=== PATIENT | female | born 1955 | race Caucasian/White ===

== ENCOUNTER 2017-11-11 11:04 | Emergency (ER) | payer OTHER ==
[2017-11-11 12:35] LABS: ADD MAN DIFF? NO
[2017-11-11 12:42] LABS: BASOPHILS % 0.5 % (0.0-2.0); EOSINOPHILS # 0.1 10^3/ul (0.0-0.5); EOSINOPHILS % 2.1 % (0.0-7.0); HEMATOCRIT 40.2 % (37.0-47.0); HEMOGLOBIN 12.8 g/dl (12.0-16.0); LYMPHOCYTES # 1.8 10^3/ul (0.8-2.9); LYMPHOCYTES % 30.1 % (15.0-51.0); MEAN CORPUSCULAR HEMOGLOBIN 29.4 pg (29.0-33.0); MEAN CORPUSCULAR HGB CONC 31.8 g/dl (32.0-37.0); MEAN CORPUSCULAR VOLUME 92.4 fl (82.0-101.0); MEAN PLATELET VOLUME 9.7 fl (7.4-10.4); MONOCYTE # 0.4 10^3/ul (0.3-0.9); MONOCYTES % 6.7 % (0.0-11.0); NEUTROPHIL # 3.7 10^3/ul (1.6-7.5); NEUTROPHILS % 60.3 % (39.0-77.0); PLATELET COUNT 205 10^3/UL (140-415); RED BLOOD COUNT 4.35 10^6/ul (4.20-5.40); RED CELL DISTRIBUTION WIDTH 14.4 % (11.5-14.5)
[2017-11-11 12:42] LABS: WHITE BLOOD COUNT 6.1 10^3/ul (4.8-10.8)
[2017-11-11 12:57] LABS: ADD UMIC YES; UR ASCORBIC ACID NEGATIVE (NEGATIVE); UR BILIRUBIN (Dip) NEGATIVE (NEGATIVE); UR BLOOD (Dip) NEGATIVE (NEGATIVE); UR CLARITY CLEAR (CLEAR); UR COLOR YELLOW (YELLOW); UR GLUCOSE (Dip) NEGATIVE (NEGATIVE); UR KETONES (Dip) NEGATIVE (NEGATIVE); UR LEUKOCYTE ESTERASE (Dip) TRACE Leu/ul (NEGATIVE); UR NITRITE (Dip) NEGATIVE (NEGATIVE); UR RBC 1 /HPF (0-5); UR SPECIFIC GRAVITY (Dip) 1.018 (1.003-1.030); UR SQUAMOUS EPITHELIAL CELL FEW /HPF (FEW); UR TOTAL PROTEIN (Dip) NEGATIVE (NEGATIVE); UR UROBILINOGEN (Dip) NEGATIVE (NEGATIVE); UR WBC 2 /HPF (0-5)
[2017-11-11 12:58] LABS: ALANINE AMINOTRANSFERASE 22 IU/L (13-69); ALBUMIN 3.9 g/dl (3.3-4.9); ALBUMIN/GLOBULIN RATIO 1.05; ALKALINE PHOSPHATASE 92 IU/L (42-121); ANION GAP 11 (8-16); ASPARTATE AMINO TRANSFERASE 21 IU/L (15-46); BILIRUBIN,INDIRECT 0.4 mg/dl (0-1.1); BILIRUBIN,TOTAL 0.4 mg/dl (0.2-1.3); BLOOD UREA NITROGEN 14 mg/dl (7-20); CALCIUM 9.5 mg/dl (8.4-10.2); CARBON DIOXIDE 31 mmol/L (21-31); CHLORIDE 103 mmol/L (97-110); CREATININE 0.59 mg/dl (0.44-1.00); GLUCOSE 145 mg/dl (70-220); LIPASE 57 U/L (23-300); POTASSIUM 3.9 mmol/L (3.5-5.1); SODIUM 141 mmol/L (135-144); TOTAL PROTEIN 7.6 g/dl (6.1-8.1)
[2017-11-11] MEDS: ONDANSETRON 4 MG INJ IV (12:59)
[2017-11-11] MEDS: morphine 4 MG/ML VIAL IV (12:59)
[2017-11-11 13:03] LABS: INR 1.16; PT RATIO 1.2
[2017-11-11 13:04] LABS: PARTIAL THROMBOPLASTIN TIME 33.5 Sec (25.0-35.0)
[2017-11-11] MEDS: SOD CHLORIDE 0.9% 1,000 ML IV (13:04)
[2017-11-11] MEDS: KETOROLAC 15 MG INJ IV (13:04)
[2017-11-11 13:50] LABS: CANCER ANTIGEN 125 15.9 U/ml (0.0-35.0)
[2017-11-11] MEDS: SOD CHLORIDE 0.9% 100 ML (14:06)
[2017-11-11] MEDS: IOHEXOL 300MG/ML 150 ML BTL (14:06)
== END 2017-11-11 14:46 | disposition home or self-care (01) ==
LOC: E/R 11:04
DX: R10.84 Generalized abdominal pain (principal); I10 Essential (primary) hypertension; E11.9 Type 2 diabetes mellitus without complications; Z85.43 Personal history of malignant neoplasm of ovary; Z79.84 Long term (current) use of oral hypoglycemic drugs
CPT/HCPCS: 36415; 74177; 80053; 81001; 83690; 85025; 85610; 85730; 86304; 96374; 99285-25

== ENCOUNTER 2017-12-19 12:14 | Inpatient (IN) | payer OTHER ==
[2017-12-19] MEDS: morphine 2 MG INJ IV (13:10)
[2017-12-19 13:13] LABS: ADD MAN DIFF? NO
[2017-12-19 13:20] LABS: BASOPHILS % 0.2 % (0.0-2.0); EOSINOPHILS % 0.3 % (0.0-7.0); HEMATOCRIT 42.1 % (37.0-47.0); HEMOGLOBIN 13.5 g/dl (12.0-16.0); LYMPHOCYTES # 0.9 10^3/ul (0.8-2.9); LYMPHOCYTES % 8.6 % (15.0-51.0); MEAN CORPUSCULAR HEMOGLOBIN 29.5 pg (29.0-33.0); MEAN CORPUSCULAR HGB CONC 32.1 g/dl (32.0-37.0); MEAN CORPUSCULAR VOLUME 91.9 fl (82.0-101.0); MONOCYTE # 0.6 10^3/ul (0.3-0.9); MONOCYTES % 5.5 % (0.0-11.0); NEUTROPHIL # 8.5 10^3/ul (1.6-7.5); PLATELET COUNT 300 10^3/UL (140-415); RED BLOOD COUNT 4.58 10^6/ul (4.20-5.40); RED CELL DISTRIBUTION WIDTH 13.9 % (11.5-14.5)
[2017-12-19 13:37] LABS: ALANINE AMINOTRANSFERASE 22 IU/L (13-69); ALBUMIN 3.9 g/dl (3.3-4.9); ALKALINE PHOSPHATASE 94 IU/L (42-121); ANION GAP 16 (8-16); ASPARTATE AMINO TRANSFERASE 20 IU/L (15-46); BILIRUBIN,INDIRECT 0.6 mg/dl (0-1.1); BILIRUBIN,TOTAL 0.6 mg/dl (0.2-1.3); BLOOD UREA NITROGEN 13 mg/dl (7-20); CALCIUM 9.5 mg/dl (8.4-10.2); CARBON DIOXIDE 29 mmol/L (21-31); CHLORIDE 99 mmol/L (97-110); CREATININE 0.52 mg/dl (0.44-1.00); GLUCOSE 181 mg/dl (70-220); LIPASE 28 U/L (23-300); POTASSIUM 4.2 mmol/L (3.5-5.1); SODIUM 140 mmol/L (135-144); TOTAL PROTEIN 7.8 g/dl (6.1-8.1)
[2017-12-19 13:38] LABS: ADD UMIC YES; UR ASCORBIC ACID NEGATIVE (NEGATIVE); UR BACTERIA FEW /HPF (NONE SEEN); UR BILIRUBIN (Dip) NEGATIVE (NEGATIVE); UR BLOOD (Dip) NEGATIVE (NEGATIVE); UR CLARITY CLEAR (CLEAR); UR COLOR YELLOW (YELLOW); UR GLUCOSE (Dip) NEGATIVE (NEGATIVE); UR KETONES (Dip) 1+ mg/dL (NEGATIVE); UR LEUKOCYTE ESTERASE (Dip) NEGATIVE Leu/ul (NEGATIVE); UR MUCUS FEW /HPF (NONE SEEN); UR NITRITE (Dip) NEGATIVE (NEGATIVE); UR RBC 1 /HPF (0-5); UR SPECIFIC GRAVITY (Dip) 1.025 (1.003-1.030); UR SQUAMOUS EPITHELIAL CELL FEW /HPF (FEW); UR TOTAL PROTEIN (Dip) 1+ mg/dl (NEGATIVE); UR UROBILINOGEN (Dip) NEGATIVE (NEGATIVE); UR WBC 2 /HPF (0-5)
[2017-12-19] MEDS: SOD CHLORIDE 0.9% 100 ML (15:01)
[2017-12-19] MEDS: IODIXANOL LOCM 100 ML BTL (15:01)
[2017-12-19] MEDS: SOD CHLORIDE 0.9% 1,000 ML IV (15:56)
[2017-12-19] MEDS ORDERED: NACL 0.9% 3 ML SYG IV (17:30)
[2017-12-19] MEDS ORDERED: GLUCAGON 1 MG INJ IM (18:00)
[2017-12-19] MEDS ORDERED: GLUCOSE GEL 15 GRAM TUBE BUCCAL (18:00)
[2017-12-19] MEDS ORDERED: GLUCOSE GEL 15 GRAM TUBE PO ×2 (18:00)
[2017-12-19] MEDS: INSULIN ASPART [NOVOLOG] 3 ML PEN SC ×2 (18:00→20:54)
[2017-12-19] MEDS ORDERED: DEXTROSE 50% 50 ML SYRINGE IV ×2 (18:00)
[2017-12-19 18:08] LABS: INR 1.12; PROTIME 14.6 Sec (11.9-14.9); PT RATIO 1.1
[2017-12-19] MEDS: DEXTROSE 5%-0.45% NACL 1,000 ML IV (18:32)
[2017-12-19] MEDS: ONDANSETRON 4 MG INJ IV (18:46)
[2017-12-19] MEDS: PIPER-TAZO 3.375 GM IV (PMX) 100 ML IVPB ×2 (18:47→21:40)
[2017-12-20] MEDS ORDERED: INSULIN ASPART [NOVOLOG] 3 ML PEN SC (01:00)
[2017-12-20] MEDS: Insulin NOVOLOG SS MILD Algorithm (NPO/TPN/ENTERAL FEEDS) SC ×6 (01:56→20:53)
[2017-12-20] MEDS ORDERED: ACCU-CHEK XX (02:00)
[2017-12-20 05:17] LABS: ADD MAN DIFF? NO
[2017-12-20 05:21] LABS: BASOPHILS % 0.5 % (0.0-2.0); EOSINOPHILS # 0.2 10^3/ul (0.0-0.5); EOSINOPHILS % 3.1 % (0.0-7.0); HEMATOCRIT 35.9 % (37.0-47.0); HEMOGLOBIN 11.4 g/dl (12.0-16.0); LYMPHOCYTES # 1.3 10^3/ul (0.8-2.9); MEAN CORPUSCULAR HEMOGLOBIN 29.7 pg (29.0-33.0); MEAN CORPUSCULAR HGB CONC 31.8 g/dl (32.0-37.0); MEAN CORPUSCULAR VOLUME 93.5 fl (82.0-101.0); MEAN PLATELET VOLUME 10.2 fl (7.4-10.4); MONOCYTE # 0.5 10^3/ul (0.3-0.9); MONOCYTES % 8.8 % (0.0-11.0); NEUTROPHIL # 3.9 10^3/ul (1.6-7.5); NEUTROPHILS % 65.1 % (39.0-77.0); PLATELET COUNT 267 10^3/UL (140-415); RED BLOOD COUNT 3.84 10^6/ul (4.20-5.40); RED CELL DISTRIBUTION WIDTH 14.2 % (11.5-14.5)
[2017-12-20 05:21] LABS: WHITE BLOOD COUNT 6.1 10^3/ul (4.8-10.8)
[2017-12-20 05:33] LABS: HEMOGLOBIN A1C 7.4 % (0-5.9)
[2017-12-20] MEDS: PANTOPRAZOLE 40 MG INJ IV ×2 (05:51→17:15)
[2017-12-20] MEDS: PIPER-TAZO 3.375 GM IV (PMX) 100 ML IVPB ×3 (05:53→22:31)
[2017-12-20 06:00] LABS: ANION GAP 10 (8-16); BLOOD UREA NITROGEN 12 mg/dl (7-20); CALCIUM 8.6 mg/dl (8.4-10.2); CARBON DIOXIDE 33 mmol/L (21-31); CHLORIDE 101 mmol/L (97-110); CREATININE 0.61 mg/dl (0.44-1.00); GLUCOSE 148 mg/dl (70-220); PHOSPHORUS 4.3 mg/dl (2.5-4.9); POTASSIUM 3.9 mmol/L (3.5-5.1); SODIUM 140 mmol/L (135-144)
[2017-12-20] MEDS: DEXTROSE 5%-0.45% NACL 1,000 ML IV ×2 (08:53→22:29)
[2017-12-20] MEDS: morphine 2 MG INJ IV ×2 (11:00→20:49)
[2017-12-21] MEDS: Insulin NOVOLOG SS MILD Algorithm (NPO/TPN/ENTERAL FEEDS) SC ×6 (01:00→21:00)
[2017-12-21] MEDS: PANTOPRAZOLE 40 MG INJ IV ×2 (06:03→19:06)
[2017-12-21] MEDS: PIPER-TAZO 3.375 GM IV (PMX) 100 ML IVPB ×3 (06:03→21:16)
[2017-12-21] MEDS: ACETAMINOPHEN 325 MG TAB PO (09:50)
[2017-12-21 12:30] LABS: HEMATOCRIT 34.5 % (37.0-47.0)
[2017-12-21] MEDS: DEXTROSE 5%-0.45% NACL 1,000 ML IV (13:18)
[2017-12-22] MEDS: Insulin NOVOLOG SS MILD Algorithm (NPO/TPN/ENTERAL FEEDS) SC ×5 (01:00→17:00)
[2017-12-22] MEDS: DEXTROSE 5%-0.45% NACL 1,000 ML IV ×2 (02:33→17:27)
[2017-12-22 06:05] LABS: ADD MAN DIFF? NO
[2017-12-22 06:06] LABS: WHITE BLOOD COUNT 6.3 10^3/ul (4.8-10.8)
[2017-12-22 06:06] LABS: BASOPHILS % 0.5 % (0.0-2.0); EOSINOPHILS # 0.2 10^3/ul (0.0-0.5); EOSINOPHILS % 2.4 % (0.0-7.0); HEMATOCRIT 35.5 % (37.0-47.0); HEMOGLOBIN 11.4 g/dl (12.0-16.0); LYMPHOCYTES # 1.1 10^3/ul (0.8-2.9); LYMPHOCYTES % 17.6 % (15.0-51.0); MEAN CORPUSCULAR HEMOGLOBIN 29.8 pg (29.0-33.0); MEAN CORPUSCULAR HGB CONC 32.1 g/dl (32.0-37.0); MEAN CORPUSCULAR VOLUME 92.7 fl (82.0-101.0); MEAN PLATELET VOLUME 10.1 fl (7.4-10.4); MONOCYTE # 0.5 10^3/ul (0.3-0.9); MONOCYTES % 7.9 % (0.0-11.0); NEUTROPHIL # 4.5 10^3/ul (1.6-7.5); NEUTROPHILS % 71.3 % (39.0-77.0); PLATELET COUNT 244 10^3/UL (140-415); RED BLOOD COUNT 3.83 10^6/ul (4.20-5.40); RED CELL DISTRIBUTION WIDTH 13.6 % (11.5-14.5)
[2017-12-22] MEDS: PANTOPRAZOLE 40 MG INJ IV ×2 (06:07→17:21)
[2017-12-22] MEDS: PIPER-TAZO 3.375 GM IV (PMX) 100 ML IVPB ×3 (06:07→21:10)
[2017-12-22 06:35] LABS: ANION GAP 12 (8-16); BLOOD UREA NITROGEN 7 mg/dl (7-20); CALCIUM 8.7 mg/dl (8.4-10.2); CARBON DIOXIDE 29 mmol/L (21-31); CHLORIDE 104 mmol/L (97-110); CREATININE 0.58 mg/dl (0.44-1.00); GLUCOSE 145 mg/dl (70-220); POTASSIUM 3.8 mmol/L (3.5-5.1); SODIUM 141 mmol/L (135-144)
[2017-12-22 06:39] LABS: PHOSPHORUS 4.3 mg/dl (2.5-4.9)
[2017-12-22] MEDS ORDERED: GLUCAGON 1 MG INJ IM (22:00)
[2017-12-22] MEDS ORDERED: DEXTROSE 50% 50 ML SYRINGE IV ×2 (22:00)
[2017-12-22] MEDS ORDERED: GLUCOSE GEL 15 GRAM TUBE PO ×2 (22:00)
[2017-12-22] MEDS ORDERED: GLUCOSE GEL 15 GRAM TUBE BUCCAL (22:00)
[2017-12-23] MEDS: ACCU-CHEK XX (01:05)
[2017-12-23 05:26] LABS: ADD MAN DIFF? NO
[2017-12-23] MEDS: PANTOPRAZOLE 40 MG INJ IV ×2 (05:28→17:36)
[2017-12-23] MEDS: PIPER-TAZO 3.375 GM IV (PMX) 100 ML IVPB ×3 (05:28→21:08)
[2017-12-23 05:37] LABS: BASOPHILS % 0.5 % (0.0-2.0); EOSINOPHILS # 0.1 10^3/ul (0.0-0.5); EOSINOPHILS % 2.1 % (0.0-7.0); HEMATOCRIT 37.3 % (37.0-47.0); HEMOGLOBIN 12.1 g/dl (12.0-16.0); LYMPHOCYTES # 0.9 10^3/ul (0.8-2.9); LYMPHOCYTES % 15.5 % (15.0-51.0); MEAN CORPUSCULAR HGB CONC 32.4 g/dl (32.0-37.0); MEAN CORPUSCULAR VOLUME 92.6 fl (82.0-101.0); MEAN PLATELET VOLUME 10.3 fl (7.4-10.4); MONOCYTE # 0.4 10^3/ul (0.3-0.9); MONOCYTES % 6.6 % (0.0-11.0); NEUTROPHIL # 4.5 10^3/ul (1.6-7.5); PLATELET COUNT 243 10^3/UL (140-415); RED BLOOD COUNT 4.03 10^6/ul (4.20-5.40); RED CELL DISTRIBUTION WIDTH 13.5 % (11.5-14.5)
[2017-12-23 05:37] LABS: WHITE BLOOD COUNT 6.1 10^3/ul (4.8-10.8)
[2017-12-23 05:52] LABS: ANION GAP 9 (8-16); BLOOD UREA NITROGEN 8 mg/dl (7-20); CALCIUM 8.9 mg/dl (8.4-10.2); CARBON DIOXIDE 28 mmol/L (21-31); CHLORIDE 106 mmol/L (97-110); GLUCOSE 137 mg/dl (70-220); POTASSIUM 3.9 mmol/L (3.5-5.1); SODIUM 139 mmol/L (135-144)
[2017-12-23] MEDS: INSULIN ASPART [NOVOLOG] 3 ML PEN SC ×4 (07:50→21:00)
[2017-12-23] MEDS: BISACODYL 10 MG SUPP PR (12:34)
[2017-12-23] MEDS: NA PHOSPHATE/BIPHOS 133 ML ENEMA PR (13:48)
[2017-12-23] MEDS: DEXTROSE 5%-0.45% NACL 1,000 ML IV (16:16)
[2017-12-24] MEDS: ACCU-CHEK XX (02:00)
[2017-12-24 04:57] LABS: ADD MAN DIFF? NO
[2017-12-24 05:05] LABS: WHITE BLOOD COUNT 6.2 10^3/ul (4.8-10.8)
[2017-12-24 05:05] LABS: BASOPHILS % 0.5 % (0.0-2.0); EOSINOPHILS # 0.2 10^3/ul (0.0-0.5); EOSINOPHILS % 2.6 % (0.0-7.0); HEMATOCRIT 35.2 % (37.0-47.0); HEMOGLOBIN 11.4 g/dl (12.0-16.0); LYMPHOCYTES # 1.1 10^3/ul (0.8-2.9); MEAN CORPUSCULAR HEMOGLOBIN 29.8 pg (29.0-33.0); MEAN CORPUSCULAR HGB CONC 32.4 g/dl (32.0-37.0); MEAN CORPUSCULAR VOLUME 91.9 fl (82.0-101.0); MEAN PLATELET VOLUME 9.8 fl (7.4-10.4); MONOCYTE # 0.6 10^3/ul (0.3-0.9); MONOCYTES % 9.4 % (0.0-11.0); NEUTROPHIL # 4.3 10^3/ul (1.6-7.5); PLATELET COUNT 236 10^3/UL (140-415); RED BLOOD COUNT 3.83 10^6/ul (4.20-5.40); RED CELL DISTRIBUTION WIDTH 13.9 % (11.5-14.5)
[2017-12-24 05:33] LABS: ANION GAP 10 (8-16); BLOOD UREA NITROGEN 10 mg/dl (7-20); CALCIUM 8.6 mg/dl (8.4-10.2); CARBON DIOXIDE 30 mmol/L (21-31); CHLORIDE 105 mmol/L (97-110); CREATININE 0.68 mg/dl (0.44-1.00); GLUCOSE 144 mg/dl (70-220); POTASSIUM 3.8 mmol/L (3.5-5.1); SODIUM 141 mmol/L (135-144)
[2017-12-24] MEDS: PIPER-TAZO 3.375 GM IV (PMX) 100 ML IVPB ×3 (05:40→21:23)
[2017-12-24] MEDS: PANTOPRAZOLE 40 MG INJ IV (05:40)
[2017-12-24] MEDS: INSULIN ASPART [NOVOLOG] 3 ML PEN SC ×4 (07:50→21:00)
[2017-12-24] MEDS: DIATR MEGLU/DIATRIZOATE SODIUM 120 ML BTL (15:39)
[2017-12-24] MEDS: PANTOPRAZOLE (EC) 40 MG TAB PO (18:22)
[2017-12-25] MEDS: ACCU-CHEK XX (02:00)
[2017-12-25] MEDS: PIPER-TAZO 3.375 GM IV (PMX) 100 ML IVPB ×2 (05:21→14:02)
[2017-12-25] MEDS: PANTOPRAZOLE (EC) 40 MG TAB PO (05:21)
[2017-12-25] MEDS: INSULIN ASPART [NOVOLOG] 3 ML PEN SC ×2 (07:50→12:58)
== END 2017-12-25 15:50 | disposition home or self-care (01) | DRG 394 ==
LOC: E/R 12:14 → MS1 14:29
DX: K43.6 Other and unspecified ventral hernia with obstruction, without gangrene (principal); K56.690 Other partial intestinal obstruction; C56.9 Malignant neoplasm of unspecified ovary; C77.2 Secondary and unspecified malignant neoplasm of intra-abdominal lymph nodes; K92.1 Melena; D17.79 Benign lipomatous neoplasm of other sites; E11.9 Type 2 diabetes mellitus without complications; I10 Essential (primary) hypertension; E78.5 Hyperlipidemia, unspecified; D63.0 Anemia in neoplastic disease; E66.9 Obesity, unspecified; Z68.37 Body mass index [BMI] 37.0-37.9, adult; Z79.4 Long term (current) use of insulin; Z90.79 Acquired absence of other genital organ(s); Z90.722 Acquired absence of ovaries, bilateral; Z90.710 Acquired absence of both cervix and uterus; Z90.6 Acquired absence of other parts of urinary tract; Z79.82 Long term (current) use of aspirin
CPT/HCPCS: 36415; 71045; 74018; 74019; 74177; 74250; 80048; 80053; 81001; 82962; 83036; 83690; 83735; 84100; 85014; 85018; 85025; 85610; 86304; 93005; 96374; 99285-25

== ENCOUNTER 2018-05-22 11:43 | Inpatient (IN) | payer OTHER ==
[2018-05-22] MEDS: ONDANSETRON 4 MG INJ IV (12:32)
[2018-05-22] MEDS: HYDROmorphONE 1 MG/ML SYG IV (12:32)
[2018-05-22] MEDS: ACETAMINOPHEN 325 MG TAB PO (12:32)
[2018-05-22] MEDS: SODIUM CHLORIDE 0.9% 1L BAG IV* (12:32)
[2018-05-22] MEDS: CEFEPIME 2GM/50 ML (PMX) 50 ML IVPB (12:32)
[2018-05-22 12:34] LABS: ADD MAN DIFF? NO
[2018-05-22 12:44] LABS: WHITE BLOOD COUNT 7.8 10^3/ul (4.8-10.8)
[2018-05-22 12:44] LABS: BASOPHILS % 0.3 % (0.0-2.0); EOSINOPHILS % 0.1 % (0.0-7.0); HEMOGLOBIN 9.9 g/dl (12.0-16.0); LYMPHOCYTES % 13.2 % (15.0-51.0); MEAN CORPUSCULAR HEMOGLOBIN 28.7 pg (29.0-33.0); MEAN CORPUSCULAR HGB CONC 31.9 g/dl (32.0-37.0); MEAN CORPUSCULAR VOLUME 89.9 fl (82.0-101.0); MEAN PLATELET VOLUME 9.9 fl (7.4-10.4); MONOCYTE # 0.9 10^3/ul (0.3-0.9); MONOCYTES % 11.8 % (0.0-11.0); NEUTROPHIL # 5.8 10^3/ul (1.6-7.5); PLATELET COUNT 305 10^3/UL (140-415); RED BLOOD COUNT 3.45 10^6/ul (4.20-5.40); RED CELL DISTRIBUTION WIDTH 17.7 % (11.5-14.5)
[2018-05-22 13:01] LABS: ALANINE AMINOTRANSFERASE 14 IU/L (13-69); ALBUMIN 3.4 g/dl (3.3-4.9); ALBUMIN/GLOBULIN RATIO 0.75; ALKALINE PHOSPHATASE 76 IU/L (42-121); ANION GAP 5 (5-13); ASPARTATE AMINO TRANSFERASE 25 IU/L (15-46); BILIRUBIN,INDIRECT 0.4 mg/dl (0-1.1); BILIRUBIN,TOTAL 0.4 mg/dl (0.2-1.3); BLOOD UREA NITROGEN 7 mg/dl (7-20); CARBON DIOXIDE 32 mmol/L (21-31); CHLORIDE 99 mmol/L (97-110); CREATININE 0.65 mg/dl (0.44-1.00); Estimated GFR > 60 mL/min (>60); GLUCOSE 126 mg/dl (70-220); POTASSIUM 3.8 mmol/L (3.5-5.1); SODIUM 136 mmol/L (135-144); TOTAL PROTEIN 7.9 g/dl (6.1-8.1)
[2018-05-22 13:02] LABS: INR 1.45; PROTIME 17.7 Sec (11.9-14.9); PT RATIO 1.4
[2018-05-22 13:03] LABS: PARTIAL THROMBOPLASTIN TIME 37.7 Sec (23.0-35.0)
[2018-05-22 13:12] LABS: TROPONIN-I < 0.012 ng/ml (0.000-0.120)
[2018-05-22] MEDS ORDERED: ACETAMINOPHEN 325 MG TAB PO ×2 (13:30→17:00)
[2018-05-22] MEDS ORDERED: ONDANSETRON 4 MG INJ IV ×2 (13:30→17:00)
[2018-05-22] MEDS ORDERED: MAGNESIUM HYDROXIDE 30ML CUP PO (17:00)
[2018-05-22] MEDS ORDERED: morphine 2 MG INJ IV (17:00)
[2018-05-22] MEDS ORDERED: NACL 0.9% 3 ML SYG IV (17:00)
[2018-05-22 17:52] LABS: LACTIC ACID 1.1 mmol/L (0.5-2.0); LIPASE 11 U/L (23-300)
[2018-05-22 19:44] LABS: ADD UMIC YES; UR ASCORBIC ACID NEGATIVE (NEGATIVE); UR BILIRUBIN (Dip) NEGATIVE (NEGATIVE); UR BLOOD (Dip) 1+ mg/dL (NEGATIVE); UR CLARITY CLEAR (CLEAR); UR COLOR YELLOW (YELLOW); UR GLUCOSE (Dip) NEGATIVE (NEGATIVE); UR KETONES (Dip) NEGATIVE (NEGATIVE); UR LEUKOCYTE ESTERASE (Dip) NEGATIVE Leu/ul (NEGATIVE); UR NITRITE (Dip) NEGATIVE (NEGATIVE); UR RBC 2 /HPF (0-5); UR TOTAL PROTEIN (Dip) NEGATIVE (NEGATIVE); UR UROBILINOGEN (Dip) NEGATIVE (NEGATIVE); UR WBC 1 /HPF (0-5)
[2018-05-22] MEDS: CEFEPIME 1GM/50 ML (PMX) 50 ML IVPB (22:22)
[2018-05-22] MEDS: SOD CHLORIDE 0.9% 1,000 ML IV (22:22)
[2018-05-23] MEDS ORDERED: PANTOPRAZOLE 40 MG INJ (04:16)
[2018-05-23] MEDS: PANTOPRAZOLE 40 MG INJ IV (05:08)
[2018-05-23 06:53] LABS: ALANINE AMINOTRANSFERASE 16 IU/L (13-69); ALBUMIN 3.1 g/dl (3.3-4.9); ALBUMIN/GLOBULIN RATIO 0.75; ALKALINE PHOSPHATASE 72 IU/L (42-121); ANION GAP 9 (5-13); ASPARTATE AMINO TRANSFERASE 23 IU/L (15-46); BILIRUBIN,INDIRECT 0.2 mg/dl (0-1.1); BILIRUBIN,TOTAL 0.2 mg/dl (0.2-1.3); BLOOD UREA NITROGEN 5 mg/dl (7-20); CALCIUM 8.6 mg/dl (8.4-10.2); CARBON DIOXIDE 27 mmol/L (21-31); CHLORIDE 103 mmol/L (97-110); CREATININE 0.53 mg/dl (0.44-1.00); Estimated GFR > 60 mL/min (>60); GLUCOSE 95 mg/dl (70-220); MAGNESIUM 1.7 mg/dl (1.7-2.5); PHOSPHORUS 3.7 mg/dl (2.5-4.9); POTASSIUM 3.6 mmol/L (3.5-5.1); SODIUM 139 mmol/L (135-144); TOTAL PROTEIN 7.2 g/dl (6.1-8.1)
[2018-05-23] MEDS: CEFEPIME 1GM/50 ML (PMX) 50 ML IVPB ×2 (08:05→20:34)
[2018-05-23] MEDS: HYDROCODONE/APAP (5/325) TAB PO (08:05)
[2018-05-23] MEDS ORDERED: morphine LIQ (10 MG/5 ML) CUP PO (23:00)
[2018-05-24 05:12] LABS: ADD MAN DIFF? NO
[2018-05-24 05:18] LABS: BASOPHILS % 0.4 % (0.0-2.0); EOSINOPHILS % 0.5 % (0.0-7.0); HEMATOCRIT 28.3 % (37.0-47.0); HEMOGLOBIN 8.8 g/dl (12.0-16.0); LYMPHOCYTES # 0.9 10^3/ul (0.8-2.9); LYMPHOCYTES % 15.8 % (15.0-51.0); MEAN CORPUSCULAR HEMOGLOBIN 28.3 pg (29.0-33.0); MEAN CORPUSCULAR HGB CONC 31.1 g/dl (32.0-37.0); MEAN PLATELET VOLUME 9.5 fl (7.4-10.4); MONOCYTE # 0.6 10^3/ul (0.3-0.9); NEUTROPHIL # 4.1 10^3/ul (1.6-7.5); NEUTROPHILS % 72.6 % (39.0-77.0); PLATELET COUNT 272 10^3/UL (140-415); RED BLOOD COUNT 3.11 10^6/ul (4.20-5.40); RED CELL DISTRIBUTION WIDTH 17.8 % (11.5-14.5)
[2018-05-24 05:18] LABS: WHITE BLOOD COUNT 5.7 10^3/ul (4.8-10.8)
[2018-05-24] MEDS: PANTOPRAZOLE 40 MG INJ IV (07:27)
[2018-05-24] MEDS ORDERED: GLUCOSE GEL 15 GRAM TUBE PO ×2 (08:30)
[2018-05-24] MEDS ORDERED: GLUCOSE GEL 15 GRAM TUBE BUCCAL (08:30)
[2018-05-24] MEDS ORDERED: GLUCAGON 1 MG INJ IM (08:30)
[2018-05-24] MEDS ORDERED: DEXTROSE 50% 50 ML SYRINGE IV ×2 (08:30)
[2018-05-24] MEDS: INSULIN ASPART [NOVOLOG] 3 ML PEN SC (09:30)
[2018-05-24] MEDS: CEFEPIME 1GM/50 ML (PMX) 50 ML IVPB (09:58)
== END 2018-05-24 12:40 | disposition home or self-care (01) | DRG 864 ==
LOC: MS1 14:28 → E/R 11:43 → MS1 05-23 11:11 → PP2 13:16 → MS1 14:28
PROVIDERS: Internal Medicine
DX: R50.9 Fever, unspecified (principal); C56.9 Malignant neoplasm of unspecified ovary; C78.6 Secondary malignant neoplasm of retroperitoneum and peritoneum; C77.2 Secondary and unspecified malignant neoplasm of intra-abdominal lymph nodes; C78.7 Secondary malignant neoplasm of liver and intrahepatic bile duct; N39.0 Urinary tract infection, site not specified; R18.8 Other ascites; E11.9 Type 2 diabetes mellitus without complications; I10 Essential (primary) hypertension; R11.2 Nausea with vomiting, unspecified
CPT/HCPCS: 36415; 71045; 74176; 80053; 81001; 82962; 83605; 83690; 83735; 84100; 84484; 85025; 85610; 85730; 87040; 87086; 87400; 93005; 96365; 96375; 99285-25; G0378

== ENCOUNTER 2018-05-29 10:05 | Emergency (ER) | payer OTHER ==
[2018-05-29 12:05] LABS: ADD MAN DIFF? NO
[2018-05-29 12:24] LABS: BASOPHILS % 0.3 % (0.0-2.0); EOSINOPHILS % 0.1 % (0.0-7.0); HEMATOCRIT 31.4 % (37.0-47.0); HEMOGLOBIN 9.7 g/dl (12.0-16.0); LYMPHOCYTES % 13.5 % (15.0-51.0); MEAN CORPUSCULAR HGB CONC 30.9 g/dl (32.0-37.0); MEAN CORPUSCULAR VOLUME 90.8 fl (82.0-101.0); MEAN PLATELET VOLUME 10.1 fl (7.4-10.4); MONOCYTE # 0.8 10^3/ul (0.3-0.9); MONOCYTES % 10.5 % (0.0-11.0); NEUTROPHIL # 5.7 10^3/ul (1.6-7.5); NEUTROPHILS % 74.9 % (39.0-77.0); PLATELET COUNT 310 10^3/UL (140-415); RED BLOOD COUNT 3.46 10^6/ul (4.20-5.40); RED CELL DISTRIBUTION WIDTH 17.8 % (11.5-14.5)
[2018-05-29 12:24] LABS: WHITE BLOOD COUNT 7.6 10^3/ul (4.8-10.8)
[2018-05-29 12:30] LABS: ALANINE AMINOTRANSFERASE 11 IU/L (13-69); ALBUMIN 3.3 g/dl (3.3-4.9); ALBUMIN/GLOBULIN RATIO 0.75; ALKALINE PHOSPHATASE 87 IU/L (42-121); ANION GAP 6 (5-13); ASPARTATE AMINO TRANSFERASE 30 IU/L (15-46); BILIRUBIN,INDIRECT 0.4 mg/dl (0-1.1); BILIRUBIN,TOTAL 0.4 mg/dl (0.2-1.3); BLOOD UREA NITROGEN 8 mg/dl (7-20); CALCIUM 9.2 mg/dl (8.4-10.2); CARBON DIOXIDE 33 mmol/L (21-31); CHLORIDE 99 mmol/L (97-110); Estimated GFR > 60 mL/min (>60); GLUCOSE 110 mg/dl (70-220); LIPASE 14 U/L (23-300); SODIUM 138 mmol/L (135-144); TOTAL PROTEIN 7.7 g/dl (6.1-8.1)
[2018-05-29] MEDS: ONDANSETRON 4 MG INJ IV (13:02)
[2018-05-29] MEDS: HYDROmorphONE 1 MG/ML SYG IV (13:02)
[2018-05-29] MEDS: SOD CHLORIDE 0.9% 1,000 ML IV (13:02)
== END 2018-05-29 14:59 | disposition home or self-care (01) ==
LOC: E/R 10:05
DX: G89.4 Chronic pain syndrome (principal); C78.6 Secondary malignant neoplasm of retroperitoneum and peritoneum; I10 Essential (primary) hypertension; E11.9 Type 2 diabetes mellitus without complications; Z85.42 Personal history of malignant neoplasm of other parts of uterus
CPT/HCPCS: 36415; 74018; 80053; 83690; 85025; 96374; 96375; 99284-25

== ENCOUNTER 2018-06-02 18:12 | Inpatient (IN) | payer OTHER ==
[2018-06-02] MEDS ORDERED: GLUCAGON 1 MG INJ IM (20:00)
[2018-06-02] MEDS ORDERED: ACETAMINOPHEN 325 MG TAB PO (20:00)
[2018-06-02] MEDS ORDERED: GLUCOSE GEL 15 GRAM TUBE PO ×2 (20:00)
[2018-06-02] MEDS ORDERED: DEXTROSE 50% 50 ML SYRINGE IV ×2 (20:00)
[2018-06-02] MEDS ORDERED: GLUCOSE GEL 15 GRAM TUBE BUCCAL (20:00)
[2018-06-02] MEDS: PANTOPRAZOLE 40 MG INJ IV (20:06)
[2018-06-02] MEDS: ONDANSETRON 4 MG INJ IV (20:06)
[2018-06-02] MEDS: DEXTROSE 5%-0.45% NACL 1,000 ML IV (20:09)
[2018-06-02] MEDS: INSULIN ASPART [NOVOLOG] 3 ML PEN SC (21:00)
[2018-06-02] MEDS: HYDROmorphONE 0.5 MG/0.5 ML SYG IV (21:31)
[2018-06-03] MEDS: ACCU-CHEK XX ×2 (02:00→20:34)
[2018-06-03 05:09] LABS: ADD MAN DIFF? NO
[2018-06-03 05:11] LABS: BASOPHILS % 0.5 % (0.0-2.0); EOSINOPHILS # 0.1 10^3/ul (0.0-0.5); EOSINOPHILS % 1.1 % (0.0-7.0); HEMOGLOBIN 8.9 g/dl (12.0-16.0); LYMPHOCYTES # 0.8 10^3/ul (0.8-2.9); LYMPHOCYTES % 13.1 % (15.0-51.0); MEAN CORPUSCULAR HEMOGLOBIN 28.3 pg (29.0-33.0); MEAN CORPUSCULAR HGB CONC 30.7 g/dl (32.0-37.0); MEAN CORPUSCULAR VOLUME 92.4 fl (82.0-101.0); MEAN PLATELET VOLUME 9.7 fl (7.4-10.4); MONOCYTE # 0.7 10^3/ul (0.3-0.9); MONOCYTES % 10.7 % (0.0-11.0); NEUTROPHIL # 4.7 10^3/ul (1.6-7.5); NEUTROPHILS % 74.3 % (39.0-77.0); PLATELET COUNT 345 10^3/UL (140-415); RED BLOOD COUNT 3.14 10^6/ul (4.20-5.40); RED CELL DISTRIBUTION WIDTH 17.6 % (11.5-14.5)
[2018-06-03 05:11] LABS: WHITE BLOOD COUNT 6.3 10^3/ul (4.8-10.8)
[2018-06-03 05:32] LABS: HEMOGLOBIN A1C 6.4 % (0-5.9)
[2018-06-03 05:37] LABS: ALANINE AMINOTRANSFERASE 15 IU/L (13-69); ALBUMIN/GLOBULIN RATIO 0.71; ALKALINE PHOSPHATASE 83 IU/L (42-121); ANION GAP 6 (5-13); ASPARTATE AMINO TRANSFERASE 32 IU/L (15-46); BILIRUBIN,INDIRECT 0.2 mg/dl (0-1.1); BILIRUBIN,TOTAL 0.2 mg/dl (0.2-1.3); BLOOD UREA NITROGEN 7 mg/dl (7-20); CALCIUM 8.7 mg/dl (8.4-10.2); CARBON DIOXIDE 30 mmol/L (21-31); CHLORIDE 100 mmol/L (97-110); Estimated GFR > 60 mL/min (>60); GLUCOSE 119 mg/dl (70-220); POTASSIUM 4.1 mmol/L (3.5-5.1); SODIUM 136 mmol/L (135-144); TOTAL PROTEIN 7.2 g/dl (6.1-8.1)
[2018-06-03] MEDS: PANTOPRAZOLE 40 MG INJ IV (05:45)
[2018-06-03] MEDS: HYDROmorphONE 0.5 MG/0.5 ML SYG IV ×2 (09:48→15:23)
[2018-06-03] MEDS: INSULIN ASPART [NOVOLOG] 3 ML PEN SC ×4 (10:00→20:34)
[2018-06-03] MEDS: DEXTROSE 5%-0.45% NACL 1,000 ML IV (20:30)
[2018-06-04] MEDS: HYDROmorphONE 0.5 MG/0.5 ML SYG IV ×4 (01:29→20:24)
[2018-06-04 05:31] LABS: ADD MAN DIFF? NO
[2018-06-04 05:53] LABS: BASOPHILS % 0.4 % (0.0-2.0); EOSINOPHILS # 0.1 10^3/ul (0.0-0.5); EOSINOPHILS % 1.1 % (0.0-7.0); HEMATOCRIT 28.8 % (37.0-47.0); HEMOGLOBIN 8.8 g/dl (12.0-16.0); LYMPHOCYTES % 17.3 % (15.0-51.0); MEAN CORPUSCULAR HEMOGLOBIN 28.1 pg (29.0-33.0); MEAN CORPUSCULAR HGB CONC 30.6 g/dl (32.0-37.0); MEAN PLATELET VOLUME 9.9 fl (7.4-10.4); MONOCYTE # 0.6 10^3/ul (0.3-0.9); MONOCYTES % 10.6 % (0.0-11.0); NEUTROPHILS % 70.1 % (39.0-77.0); PLATELET COUNT 325 10^3/UL (140-415); RED BLOOD COUNT 3.13 10^6/ul (4.20-5.40); RED CELL DISTRIBUTION WIDTH 17.1 % (11.5-14.5)
[2018-06-04 05:53] LABS: WHITE BLOOD COUNT 5.7 10^3/ul (4.8-10.8)
[2018-06-04] MEDS: PANTOPRAZOLE 40 MG INJ IV (06:08)
[2018-06-04 06:52] LABS: UR BACTERIA FEW /HPF (NONE SEEN); UR MUCUS MODERATE /HPF (NONE SEEN); UR RBC 0 /HPF (0-5); UR SQUAMOUS EPITHELIAL CELL FEW /HPF (FEW); UR WBC 1 /HPF (0-5)
[2018-06-04 06:57] LABS: ADD UMIC NO; UR ASCORBIC ACID NEGATIVE (NEGATIVE); UR BILIRUBIN (Dip) NEGATIVE (NEGATIVE); UR BLOOD (Dip) NEGATIVE (NEGATIVE); UR CLARITY CLEAR (CLEAR); UR COLOR YELLOW (YELLOW); UR GLUCOSE (Dip) NEGATIVE (NEGATIVE); UR KETONES (Dip) NEGATIVE (NEGATIVE); UR LEUKOCYTE ESTERASE (Dip) NEGATIVE Leu/ul (NEGATIVE); UR NITRITE (Dip) NEGATIVE (NEGATIVE); UR SPECIFIC GRAVITY (Dip) 1.018 (1.003-1.030); UR TOTAL PROTEIN (Dip) NEGATIVE (NEGATIVE); UR UROBILINOGEN (Dip) NEGATIVE (NEGATIVE)
[2018-06-04 07:33] LABS: ALANINE AMINOTRANSFERASE 11 IU/L (13-69); ALBUMIN 2.8 g/dl (3.3-4.9); ALKALINE PHOSPHATASE 82 IU/L (42-121); ANION GAP 6 (5-13); ASPARTATE AMINO TRANSFERASE 33 IU/L (15-46); BILIRUBIN,INDIRECT 0.1 mg/dl (0-1.1); BILIRUBIN,TOTAL 0.1 mg/dl (0.2-1.3); BLOOD UREA NITROGEN 7 mg/dl (7-20); CALCIUM 8.5 mg/dl (8.4-10.2); CARBON DIOXIDE 28 mmol/L (21-31); CHLORIDE 103 mmol/L (97-110); CREATININE 0.57 mg/dl (0.44-1.00); Estimated GFR > 60 mL/min (>60); GLUCOSE 151 mg/dl (70-220); POTASSIUM 3.7 mmol/L (3.5-5.1); SODIUM 137 mmol/L (135-144); TOTAL PROTEIN 6.8 g/dl (6.1-8.1)
[2018-06-04] MEDS: INSULIN ASPART [NOVOLOG] 3 ML PEN SC ×4 (07:50→20:31)
[2018-06-04 12:47] LABS: INR 1.28; PROTIME 16.1 Sec (11.9-14.9); PT RATIO 1.3
[2018-06-04] MEDS: ACCU-CHEK XX (20:31)
[2018-06-04] MEDS: ONDANSETRON 4 MG INJ IV (21:56)
[2018-06-05] MEDS: HYDROmorphONE 0.5 MG/0.5 ML SYG IV ×4 (01:00→17:25)
[2018-06-05] MEDS: ONDANSETRON 4 MG INJ IV ×3 (04:44→17:19)
[2018-06-05] MEDS: PANTOPRAZOLE 40 MG INJ IV (06:02)
[2018-06-05] MEDS: INSULIN ASPART [NOVOLOG] 3 ML PEN SC ×4 (07:50→20:16)
[2018-06-05] MEDS: LIDOCAINE 1% (MPF) 5 ML VIAL (10:57)
[2018-06-05] MEDS: DOCUSATE SODIUM 100 MG CAP PO ×2 (14:26→20:17)
[2018-06-05] MEDS: ENOXAPARIN 30 MG/0.3 ML SYG SC (14:28)
[2018-06-05] MEDS: ACCU-CHEK XX (20:17)
[2018-06-06 05:11] LABS: ADD MAN DIFF? NO
[2018-06-06 05:20] LABS: BASOPHILS % 0.1 % (0.0-2.0); EOSINOPHILS # 0.1 10^3/ul (0.0-0.5); HEMATOCRIT 31.5 % (37.0-47.0); HEMOGLOBIN 9.7 g/dl (12.0-16.0); LYMPHOCYTES # 0.9 10^3/ul (0.8-2.9); LYMPHOCYTES % 11.9 % (15.0-51.0); MEAN CORPUSCULAR HEMOGLOBIN 27.8 pg (29.0-33.0); MEAN CORPUSCULAR HGB CONC 30.8 g/dl (32.0-37.0); MEAN CORPUSCULAR VOLUME 90.3 fl (82.0-101.0); MEAN PLATELET VOLUME 9.9 fl (7.4-10.4); MONOCYTE # 0.7 10^3/ul (0.3-0.9); MONOCYTES % 9.4 % (0.0-11.0); NEUTROPHIL # 5.6 10^3/ul (1.6-7.5); PLATELET COUNT 375 10^3/UL (140-415); RED BLOOD COUNT 3.49 10^6/ul (4.20-5.40); RED CELL DISTRIBUTION WIDTH 16.8 % (11.5-14.5)
[2018-06-06 05:20] LABS: WHITE BLOOD COUNT 7.3 10^3/ul (4.8-10.8)
[2018-06-06 05:35] LABS: PHOSPHORUS 4.1 mg/dl (2.5-4.9)
[2018-06-06 05:35] LABS: MAGNESIUM 1.9 mg/dl (1.7-2.5)
[2018-06-06 05:37] LABS: ANION GAP 6 (5-13); BLOOD UREA NITROGEN 8 mg/dl (7-20); CALCIUM 8.7 mg/dl (8.4-10.2); CARBON DIOXIDE 29 mmol/L (21-31); CHLORIDE 101 mmol/L (97-110); CREATININE 0.59 mg/dl (0.44-1.00); Estimated GFR > 60 mL/min (>60); GLUCOSE 105 mg/dl (70-220); POTASSIUM 4.1 mmol/L (3.5-5.1); SODIUM 136 mmol/L (135-144)
[2018-06-06] MEDS: METOCLOPRAMIDE 10 MG INJ IV (06:29)
[2018-06-06] MEDS: PANTOPRAZOLE 40 MG INJ IV (06:29)
[2018-06-06] MEDS: INSULIN ASPART [NOVOLOG] 3 ML PEN SC ×4 (07:50→21:00)
[2018-06-06] MEDS: POLYETHYLENE GLYCOL 17 GM PACKET PO (08:55)
[2018-06-06] MEDS: DOCUSATE SODIUM 100 MG CAP PO ×2 (08:55→21:04)
[2018-06-06] MEDS: ENOXAPARIN 30 MG/0.3 ML SYG SC (08:57)
[2018-06-06] MEDS ORDERED: DEXAMETHASONE 4 MG/ML 20 MG in DEXTROSE 5% 50 ML IVPB (11:30)
[2018-06-06] MEDS ORDERED: MEPERIDINE 50 MG INJ IV (11:30)
[2018-06-06] MEDS: SOD CHLORIDE 0.9% 1,000 ML IV (12:14)
[2018-06-06] MEDS ORDERED: DIPHENHYDRAMINE 50 MG INJ IV (15:00)
[2018-06-06] MEDS: HYDROmorphONE 0.5 MG/0.5 ML SYG IV (16:26)
[2018-06-06] MEDS: DIPHENHYDRAMINE 50 MG INJ IV (16:55)
[2018-06-06] MEDS: ONDANSETRON INJ 16 MG, DEXAMETHASONE 4 MG/ML 10 MG in DEXTROSE 5% 50 ML IV (16:55)
[2018-06-06] MEDS: SOD CHLORIDE 0.9% IV ×2 (17:28→20:58)
[2018-06-06] MEDS: GEMCITABINE IV (17:28)
[2018-06-06] MEDS: CARBOPLATIN IV (20:58)
[2018-06-07] MEDS: SOD CHLORIDE 0.9% 1,000 ML IV ×2 (01:21→17:58)
[2018-06-07] MEDS: ACCU-CHEK XX (01:31)
[2018-06-07] MEDS: PANTOPRAZOLE 40 MG INJ IV (05:34)
[2018-06-07] MEDS: INSULIN ASPART [NOVOLOG] 3 ML PEN SC ×4 (07:50→21:00)
[2018-06-07] MEDS: HYDROmorphONE 0.5 MG/0.5 ML SYG IV ×2 (07:59→16:01)
[2018-06-07] MEDS ORDERED: HYDROCODONE/APAP (10/325) TAB PO (08:30)
[2018-06-07] MEDS: ENOXAPARIN 30 MG/0.3 ML SYG SC (08:45)
[2018-06-07] MEDS: DOCUSATE SODIUM 100 MG CAP PO ×2 (08:46→21:00)
[2018-06-07] MEDS: ONDANSETRON 4 MG INJ IV ×2 (12:39→21:48)
[2018-06-07] MEDS ORDERED: morphine LIQ (10 MG/5 ML) CUP PO (14:30)
[2018-06-07] MEDS: METOCLOPRAMIDE 10 MG INJ IV (15:07)
[2018-06-07] MEDS: morphine 2 MG INJ IV (16:20)
[2018-06-07] MEDS: SCOPOLAMINE 1.5 MG PATCH TRANSDERM (18:26)
[2018-06-07] MEDS: morphine 1 MG/ML 30 ML (PCA) IV (18:32)
[2018-06-07] MEDS: POLYETHYLENE GLYCOL 17 GM PACKET PO (21:48)
[2018-06-08] MEDS: METOCLOPRAMIDE 10 MG INJ IV ×2 (00:40→06:44)
[2018-06-08] MEDS: ACCU-CHEK XX (01:34)
[2018-06-08] MEDS: ONDANSETRON 4 MG INJ IV ×3 (03:41→20:14)
[2018-06-08] MEDS: SOD CHLORIDE 0.9% 1,000 ML IV ×2 (03:42→18:09)
[2018-06-08] MEDS: PANTOPRAZOLE 40 MG INJ IV (05:43)
[2018-06-08] MEDS: INSULIN ASPART [NOVOLOG] 3 ML PEN SC ×4 (07:50→21:00)
[2018-06-08] MEDS: DOCUSATE SODIUM 100 MG CAP PO ×2 (09:11→21:09)
[2018-06-08] MEDS: ENOXAPARIN 30 MG/0.3 ML SYG SC (09:11)
[2018-06-08] MEDS: morphine LIQ (10 MG/5 ML) CUP PO (10:54)
[2018-06-08] MEDS: LEVOFLOXACIN 500MG/D5W (PMX) 100 ML IVPB (14:16)
[2018-06-08] MEDS ORDERED: morphine LIQ (10 MG/5 ML) CUP PO (14:30)
[2018-06-08] MEDS: DRONABINOL 2.5 MG CAP PO ×2 (15:08→21:10)
[2018-06-09] MEDS: METOCLOPRAMIDE 10 MG INJ IV ×3 (01:53→20:12)
[2018-06-09] MEDS: ACCU-CHEK XX ×2 (02:00→21:16)
[2018-06-09] MEDS: PANTOPRAZOLE (EC) 40 MG TAB PO (05:21)
[2018-06-09] MEDS: ONDANSETRON 4 MG INJ IV ×3 (05:21→13:40)
[2018-06-09] MEDS: SOD CHLORIDE 0.9% 1,000 ML IV ×2 (05:21→19:37)
[2018-06-09 05:55] LABS: ADD MAN DIFF? NO
[2018-06-09 06:05] LABS: WHITE BLOOD COUNT 6.8 10^3/ul (4.8-10.8)
[2018-06-09 06:05] LABS: ABNORMAL IP MESSAGE 1; BASOPHILS % 0.1 % (0.0-2.0); EOSINOPHILS # 0.1 10^3/ul (0.0-0.5); HEMATOCRIT 28.8 % (37.0-47.0); HEMOGLOBIN 8.8 g/dl (12.0-16.0); LYMPHOCYTES # 0.5 10^3/ul (0.8-2.9); LYMPHOCYTES % 6.6 % (15.0-51.0); MEAN CORPUSCULAR HEMOGLOBIN 27.8 pg (29.0-33.0); MEAN CORPUSCULAR HGB CONC 30.6 g/dl (32.0-37.0); MEAN CORPUSCULAR VOLUME 91.1 fl (82.0-101.0); MEAN PLATELET VOLUME 9.9 fl (7.4-10.4); MONOCYTES % 0.4 % (0.0-11.0); NEUTROPHIL # 6.2 10^3/ul (1.6-7.5); NEUTROPHILS % 91.5 % (39.0-77.0); PLATELET COUNT 300 10^3/UL (140-415); RED BLOOD COUNT 3.16 10^6/ul (4.20-5.40); RED CELL DISTRIBUTION WIDTH 16.7 % (11.5-14.5)
[2018-06-09 06:22] LABS: ANION GAP 9 (5-13); BLOOD UREA NITROGEN 8 mg/dl (7-20); CALCIUM 8.2 mg/dl (8.4-10.2); CARBON DIOXIDE 28 mmol/L (21-31); CHLORIDE 100 mmol/L (97-110); CREATININE 0.55 mg/dl (0.44-1.00); Estimated GFR > 60 mL/min (>60); GLUCOSE 104 mg/dl (70-220); SODIUM 137 mmol/L (135-144)
[2018-06-09 06:23] LABS: POSITIVE DIFF @See below
[2018-06-09] MEDS: INSULIN ASPART [NOVOLOG] 3 ML PEN SC ×4 (07:50→21:00)
[2018-06-09] MEDS: DOCUSATE SODIUM 100 MG CAP PO ×2 (09:23→20:13)
[2018-06-09] MEDS: DRONABINOL 2.5 MG CAP PO ×2 (09:23→21:55)
[2018-06-09] MEDS: ENOXAPARIN 30 MG/0.3 ML SYG SC (09:26)
[2018-06-09] MEDS: LEVOFLOXACIN 500MG/D5W (PMX) 100 ML IVPB (13:40)
[2018-06-09] MEDS: ONDANSETRON (ODT) 4 MG TAB ODT (15:25)
[2018-06-10] MEDS: ONDANSETRON 4 MG INJ IV ×2 (03:18→08:46)
[2018-06-10] MEDS: PANTOPRAZOLE (EC) 40 MG TAB PO (05:23)
[2018-06-10] MEDS: METOCLOPRAMIDE 10 MG INJ IV (07:01)
[2018-06-10] MEDS: SOD CHLORIDE 0.9% 1,000 ML IV ×2 (07:01→21:24)
[2018-06-10] MEDS: INSULIN ASPART [NOVOLOG] 3 ML PEN SC ×4 (07:50→21:00)
[2018-06-10] MEDS: ENOXAPARIN 30 MG/0.3 ML SYG SC (08:42)
[2018-06-10] MEDS: DRONABINOL 2.5 MG CAP PO ×2 (08:43→21:19)
[2018-06-10] MEDS: DOCUSATE SODIUM 100 MG CAP PO ×2 (08:43→21:19)
[2018-06-10] MEDS ORDERED: ONDANSETRON (ODT) 4 MG TAB ODT (12:00)
[2018-06-10] MEDS ORDERED: LORAZEPAM 1 MG TAB PO (12:00)
[2018-06-10] MEDS: METOCLOPRAMIDE 10 MG TAB PO ×2 (13:17→18:00)
[2018-06-10] MEDS: LEVOFLOXACIN 500MG/D5W (PMX) 100 ML IVPB (13:17)
[2018-06-10] MEDS: LIDOCAINE 1% (MPF) 5 ML VIAL (14:30)
[2018-06-10] MEDS: LUBIPROSTONE 8 MCG CAPSULE PO ×2 (15:16→21:18)
[2018-06-10] MEDS: morphine LIQ (10 MG/5 ML) CUP PO (16:52)
[2018-06-10] MEDS: SCOPOLAMINE 1.5 MG PATCH TRANSDERM (18:12)
[2018-06-11] MEDS: ACCU-CHEK XX (01:23)
[2018-06-11 05:15] LABS: ADD MAN DIFF? NO
[2018-06-11 05:21] LABS: ABNORMAL IP MESSAGE 1; BASOPHILS % 0.7 % (0.0-2.0); EOSINOPHILS % 1.5 % (0.0-7.0); HEMATOCRIT 25.6 % (37.0-47.0); HEMOGLOBIN 8.1 g/dl (12.0-16.0); LYMPHOCYTES # 0.6 10^3/ul (0.8-2.9); LYMPHOCYTES % 20.8 % (15.0-51.0); MEAN CORPUSCULAR HEMOGLOBIN 28.4 pg (29.0-33.0); MEAN CORPUSCULAR HGB CONC 31.6 g/dl (32.0-37.0); MEAN CORPUSCULAR VOLUME 89.8 fl (82.0-101.0); MEAN PLATELET VOLUME 9.5 fl (7.4-10.4); MONOCYTES % 1.1 % (0.0-11.0); NEUTROPHIL # 2.1 10^3/ul (1.6-7.5); NEUTROPHILS % 75.5 % (39.0-77.0); PLATELET COUNT 230 10^3/UL (140-415); RED BLOOD COUNT 2.85 10^6/ul (4.20-5.40); RED CELL DISTRIBUTION WIDTH 16.4 % (11.5-14.5)
[2018-06-11 05:21] LABS: WHITE BLOOD COUNT 2.7 10^3/ul (4.8-10.8)
[2018-06-11 05:28] LABS: POSITIVE DIFF @See below
[2018-06-11 05:36] LABS: ANION GAP 8 (5-13); BLOOD UREA NITROGEN 5 mg/dl (7-20); CALCIUM 8.1 mg/dl (8.4-10.2); CARBON DIOXIDE 29 mmol/L (21-31); CHLORIDE 100 mmol/L (97-110); Estimated GFR > 60 mL/min (>60); GLUCOSE 90 mg/dl (70-220); POTASSIUM 3.5 mmol/L (3.5-5.1); SODIUM 137 mmol/L (135-144)
[2018-06-11] MEDS: PANTOPRAZOLE (EC) 40 MG TAB PO (05:58)
[2018-06-11] MEDS: METOCLOPRAMIDE 10 MG TAB PO ×3 (05:58→09:01)
[2018-06-11] MEDS: INSULIN ASPART [NOVOLOG] 3 ML PEN SC ×2 (07:50→11:40)
[2018-06-11] MEDS: DRONABINOL 2.5 MG CAP PO (08:56)
[2018-06-11] MEDS: DOCUSATE SODIUM 100 MG CAP PO (08:56)
[2018-06-11] MEDS: SOD CHLORIDE 0.9% 1,000 ML IV (08:56)
[2018-06-11] MEDS: LUBIPROSTONE 8 MCG CAPSULE PO (08:56)
[2018-06-11] MEDS: ENOXAPARIN 30 MG/0.3 ML SYG SC (08:58)
[2018-06-11 09:22] LABS: ANISOCYTOSIS 1+ (0-0); EOSINOPHILS % (M) 1 % (0-7); GIANT THROMBO% (M) 1 % (0-0); LYMPHOCYTES #M 0.4 10^3/ul (0.8-2.9); LYMPHOCYTES % (M) 18 % (15-51); MONOCYTES % (M) 1 % (0-11); PLATELET ESTIMATE NORMAL; POIKILOCYTOSIS 1+ (0-0); REACTIVE LYMPHOCYTES% (M) 1 % (0-0); SEGMENTED NEUTROPHILS (M) % 79 % (39-77); SMUDGE%M 33 % (0-0)
[2018-06-11] MEDS: LEVOFLOXACIN 500MG/D5W (PMX) 100 ML IVPB (13:55)
[2018-06-11] MEDS: LACTULOSE 30ML CUP GTB (13:55)
[2018-06-11] MEDS: DOCUSATE SODIUM 250 MG CAP PO (16:11)
[2018-06-13] MEDS ORDERED: SOD CHLORIDE 0.9% IV (14:00)
[2018-06-13] MEDS ORDERED: GEMCITABINE IV (14:00)
== END 2018-06-11 16:45 | disposition home or self-care (01) | DRG 375 ==
LOC: MS1 18:12
PROVIDERS: Internal Medicine Nephrology
PROC: 0W9G3ZZ Drainage of Peritoneal Cavity, Percutaneous Approach (ICD-10-PCS; principal; 2018-06-05)
PROC: 3E04305 Introduction of Other Antineoplastic into Central Vein, Percutaneous Approach (ICD-10-PCS; 2018-06-06)
PROC: 0W9G3ZZ Drainage of Peritoneal Cavity, Percutaneous Approach (ICD-10-PCS; 2018-06-10)
DX: C78.6 Secondary malignant neoplasm of retroperitoneum and peritoneum (principal); C56.9 Malignant neoplasm of unspecified ovary; R18.0 Malignant ascites; R65.10 Systemic inflammatory response syndrome (SIRS) of non-infectious origin without acute organ dysfunction; C78.7 Secondary malignant neoplasm of liver and intrahepatic bile duct; G89.3 Neoplasm related pain (acute) (chronic); Z51.11 Encounter for antineoplastic chemotherapy; D64.9 Anemia, unspecified; E11.8 Type 2 diabetes mellitus with unspecified complications; R10.9 Unspecified abdominal pain; R11.2 Nausea with vomiting, unspecified; I10 Essential (primary) hypertension; K59.00 Constipation, unspecified; E66.9 Obesity, unspecified; Z68.33 Body mass index [BMI] 33.0-33.9, adult; R59.0 Localized enlarged lymph nodes; R59.1 Generalized enlarged lymph nodes; T40.695A Adverse effect of other narcotics, initial encounter; Y92.239 Unspecified place in hospital as the place of occurrence of the external cause
CPT/HCPCS: 74018; 76705; 80048; 80053; 81003; 82962; 83036; 83605; 83735; 84100; 85025; 85610; 87086; J9045; J9201